=== PATIENT | female | born 1965 | race Caucasian/White ===

== ENCOUNTER 2017-01-25 22:58 | Emergency (ER) | payer OTHER ==
[2017-01-25] MEDS ORDERED: NORMAL SALINE 10 ML SYRINGE FLUSH IVP PRN (23:23)
[2017-01-25] MEDS ORDERED: Sodium Chloride 0.9% 2,000 ML PRIMARY IV ONE (23:23)
[2017-01-25] MEDS ORDERED: MORPHINE SULFATE 4 MG/1 ML IVP ONE (23:23)
[2017-01-25 23:25] VITALS: RESP 18; TEMP 96.1
--- NOTE | 2017-01-25 23:31 | PDOC ---
Abdomen/Flank HPI - General Chief Complaint: Abdomen Pain Stated Complaint: ABDOMINAL PAIN THAT RADIATES TO BACK Date Seen by Provider: 01/25/17 Time Seen by Provider: 23:27 - History of Present Illness Initial Comments: Patient is a very nice 51-year-old female who tells me that she has been having a pain in her left side of her abdomen for about 3 months and that it is worse tonight than normal. She states that she drinks alcohol heavily to try to get this pain to go away and that it's not going away at all tonight despite the fact that she's been drinking a lot. She states that she doesn'tpains ever gone away completely over last 3 months. She has not had any imaging of her abdomen to this point she's not sure that she's had any labs. She is difficult to get a history from because of her intoxication. She denies any nausea or vomiting denies constipation or diarrhea currently. She does not have fever chills according to her. She's had no hematochezia or hematemesis. She's never had pancreatitis in the past. She has had diverticulitis which is in the left low abdomen in the past and she needed to be treated with antibiotics for that. - Patient Home Medications Home Medications: Home Medications Cyclobenzaprine HCl 1 tab PO 1-2 x daily PRN #60 tab 09/06/16 Hydrocodone/Acetaminophen [Hydrocodon-Acetaminophen 5-325] 1 - 2 unit PO Q4-6H PRN #120 tab 09/06/16 Trazodone HCl 1 tab PO QHS #90 tab 09/06/16 Amlodipine Besylate 1 unit PO QD #90 tab 11/18/16 Benazepril HCl 1 unit PO QD #90 tab 11/18/16 Chlorthalidone 1 unit PO QD #90 tab 11/18/16 Hydrocodone/Acetaminophen [Hydrocodon-Acetaminophen 5-325] 1 - 2 tab PO Q4- 6HRSPRN PRN #120 tab 11/18/16 Ropinirole HCl 1 unit PO BID #180 tab 11/18/16 Trazodone HCl 1 tab PO QHS #90 tab 11/18/16 - Patient Allergies Allergies/Adverse Reactions: Allergies Allergy/AdvReac Type Severity Reaction Status Date / Time aripiprazole [From Abilify] Allergy Severe Rash, Hives Verified 01/25/17 23:18 Past Medical History - heen HEENT History: Denies History Cardiovascular History: Hypertension Respiratory History: Denies History Gastrointestinal History: GERD Genitourinary History: Denies History Endocrine History: Denies History Musculoskeletal History: Back Pain, Joint Pain Neurological History: Traumatic Brain Injury Blood Disorders: Denies History Psychiatric History: Depression, Anxiety Disorders, Substance Abuse, Other ( please comment) Additional Psychiatric History: SUICIDE ATTEMPT APPROX. 4 YEARS History of Sexually Transmitted Diseases: No Female Reproductive History: Denies History Obstetrical History: Denies History Cancer History: Denies History In Past Year Been Physically Harmed or Verbally Threatened: No History of MDRO: No History of Other Communicable Diseases: No Tobacco Use: Never Smoker Alcohol Use: Occasionally Type of alcohol normally used: Beer, Hard Liquor Substance Use Type: None Previous Surgical History: Yes Type / Date of Surgery: BRAIN SURGERY. BILATERAL ZEKE. RIGHT KNEE Anesthesia Reactions: No Malignant Hyperthermia: No Significant Family History: No pertinent family hx Past Medical History Reviewed: Reviewed - No Changes ROS - Limitations ROS Limitations: No Limitations Constitution: DENIES: Chills, Fever Cardiovascular: REPORTS: Denies Cardiac Symptoms Respiratory: REPORTS: Denies Resp Symptoms Neurological: REPORTS: Denies Neuro Symptoms Gastrointestinal: REPORTS: Abdominal Pain Abdominal/Flank Pain PE - General Appearance General Appearance: POSITIVE: Alert, Cooperative, Other (Clearly intoxicated) - HEENT HEENT: POSITIVE: Head Inspection Nml, Eyes Inspection Nml - Neck Neck: POSITIVE: Normal Inspection - Respiratory Respiratory: POSITIVE: No Respiratory Distress, Breath Sounds Normal, Chest Non- Tender - Cardiovascular Cardiovascular: POSITIVE: Regular Rate and Rhythm, Heart Sounds Normal, Equal Pulses - Abdomen Additional Abdominal Details: She does have some tenderness in the left upper abdomen with a bit of guarding associated there as well. Midabdomen right upper quadrant and remainder the abdomen are benign tonight. Bowel tones are normal. Abdomen Progress - Results Reviewed by me Lab Results Reviewed: Yes Lab Results:: Laboratory Results 01/25/17 01/25/17 Range/Units 22:45 23:50 WBC 6.92 (4.8-10.8) 10^3/uL RBC 4.31 (4.20-5.40) 10^6/uL Hgb 13.4 (12.0-16.0) g/dL Hct 39.7 (37.0-47.0) % MCV 92.1 (81-99) FL MCH 31.1 H (27-31) PG MCHC 33.8 (33-37) g/dL RDW Std Deviation 43.4 (39-50) fL RDW Coeff of Hima 13.1 (11.5-14.5) % Plt Count 356 H (140-350) 10*3/uL MPV 10.0 (7.4-12.2) FL Immature Gran % (Auto) 0.3 (0-5) % Neut % (Auto) 38.2 L (50-80) % Lymph % (Auto) 50.0 (10-50) % [place] % (Auto) 7.9 (5-15) % Eos % (Auto) 2.3 (0-8) % Baso % (Auto) 1.3 H (0-1) % Immature Gran # (Auto) 0.02 10*3/UL Neut # (Auto) 2.64 10*3/UL Lymph # (Auto) 3.46 10*3/uL [place] # (Auto) 0.55 (0.3-0.8) 10*3/UL Eos # (Auto) 0.16 10*3/UL Baso # (Auto) 0.09 10*3/UL WBC Morphology Comment Normal morphology (NORM) Plt Morphology Comment Normal morphology (NORM) RBC Morph Comment Normal morphology (NORM) Sodium 142 (135-145) meq/L Potassium 3.2 L (3.8-5.2) meq/L Chloride 101 (98-112) meq/L Carbon Dioxide 26 (23-33) meq/L Anion Gap 15 (5-20) BUN 11 (7-22) mg/dL Creatinine 0.7 (0.50-1.20) mg/dL Estimated GFR > 60 (>60 ml/min/1.73m(2)) BUN/Creatinine Ratio 15.71 (6-20) Glucose 114 H (78-110) mg/dL Calculated Osmolality 293.0 H (267-292) mOsm/kg Calcium 9.4 (8.7-10.7) mg/dL Total Bilirubin 0.4 (0.3-1.2) mg/dL AST 38 (8-39) IU/L ALT 30 (9-52) IU/L Alkaline Phosphatase 57 (38-126) IU/L Total Protein 8.0 (6.1-8.0) g/dL Albumin 4.6 (3.5-4.8) g/dL Globulin 3.4 (2.50-4.10) g/dL Albumin/Globulin Ratio 1.30 (1.3-2.0) mg/g Lipase 92 (23-300) IU/L Ur Collection Type Clean catch urine Urine Color Yellow Urine Clarity Clear (CLEAR) Urine pH 6.5 (5.0-8.5) Ur Specific [place] 1.005 (1.005-1.030) Urine Protein Negative (NEG) mg/dl Urine Glucose (UA) Negative (NEG) mg/dL Urine Ketones Negative (NEG) Urine Occult Blood Negative (NEG) Urine Nitrate Negative (NEG) Urine Bilirubin Negative (NEG) Urine Urobilinogen 0.2 (0.2) EU/dL Ur Leukocyte Esterase Negative (NEG) Ur Culture Indicated? Culture not set Serum Alcohol 272 H (0-10) mg/dL - Patient's Progress MDM / ED Course: This patient has a markedly elevated blood alcohol level at 272. Otherwise lipase is okay white blood cell count is normal no other significant concerning indicators that she needs further imaging or other more aggressive workup. She apparently had this pain now for around 3 months. She tells me that she has discussed having a colonoscopy with the provider. She states that she will try to stop drinking. Ultimately I don't feel that there is any other significant workup to do tonight and we'll go ahead and discharge her home and I've encouraged her to follow-up with her primary care provider in the next 1-2 days. Patient Care Time - Estimated PCT Patient Care Time (In Minutes): 35 Vital Signs - Recent Vital Signs Vital Signs: Vital Signs (Last 8 hours) Temp Pulse Resp BP Pulse Ox 01/25/17 22:59 96.1 F L 91 18 101/74 94 - VS Reviewed Vital Signs Reviewed: Yes Discharge Clinical Impression: Abdominal pain Discharge Disposition: Discharged to Home Condition: Good Patient Instructions Given at Discharge: Acute Abdominal Pain (ED) Additional Instructions: Follow-up with your primary care provider to evaluate your ongoing abdominal pain Rest is much can over the next couple days to see if this will help your pain improve Consider colonoscopy versus imaging of your abdomen by CT if your symptoms do not improve Please try to stop drinking. If when you do stop drinking at withdrawal symptoms please be hospitalized to help stop drinking Follow Up With: NADJA JIMENEZ [Primary Care Provider] -
[2017-01-25 23:32] LABS: BASOPHILS # (AUTO) 0.09 10*3/UL; BASOPHILS % (AUTO) 1.3 % (0-1); EOSINOPHILS # (AUTO) 0.16 10*3/UL; EOSINOPHILS % (AUTO) 2.3 % (0-8); HEMATOCRIT 39.7 % (37.0-47.0); HEMOGLOBIN 13.4 g/dL (12.0-16.0); LYMPHOCYTES # (AUTO) 3.46 10*3/uL; MEAN CORPUSCULAR HEMOGLOBIN 31.1 PG (27-31); MEAN CORPUSCULAR HGB CONC 33.8 g/dL (33-37); MEAN CORPUSCULAR VOLUME 92.1 FL (81-99); MONOCYTES # (AUTO) 0.55 10*3/UL (0.3-0.8); MONOCYTES % (AUTO) 7.9 % (5-15); NEUTROPHILS # (AUTO) 2.64 10*3/UL; NEUTROPHILS % (AUTO) 38.2 % (50-80); RED BLOOD COUNT 4.31 10^6/uL (4.20-5.40)
[2017-01-25 23:33] LABS: PLATELET MORPHOLOGY COMMENT NORMAL MORPHOLOGY (NORM); RBC MORPHOLOGY COMMENT NORMAL MORPHOLOGY (NORM); WBC MORPHOLOGY COMMENT NORMAL MORPHOLOGY (NORM)
[2017-01-25 23:43] LABS: BLOOD UREA NITROGEN 11 mg/dL (7-22); BUN/CREATININE RATIO 15.71 (6-20); CALCIUM 9.4 mg/dL (8.7-10.7); EST GLOMERULAR FILTRATION > 60 (>60 ml/min/1.73m(2)); LIPASE 92 IU/L (23-300); SERUM ALBUMIN 4.6 g/dL (3.5-4.8)
[2017-01-25 23:59] LABS: BILIRUBIN,URINE NEGATIVE (NEG); CLARITY,URINE CLEAR (CLEAR); COLOR,URINE YELLOW; GLUCOSE, URINE (UA) NEGATIVE (NEG); NITRATE,URINE NEGATIVE (NEG); OCCULT BLOOD,URINE NEGATIVE (NEG); PH,URINE 6.5 (5.0-8.5); PROTEIN,URINE NEGATIVE (NEG); URINE SAMPLE TYPE CLEAN CATCH URINE; UROBILINOGEN,URINE 0.2 EU/dL (0.2)
== END 2017-01-26 01:00 | disposition home or self-care (01) ==
LOC: ER 22:58
DX: R10.12 Left upper quadrant pain (principal); F10.129 Alcohol abuse with intoxication, unspecified
CPT/HCPCS: 80053; 80320; 81003; 83690; 85025; 96361; 96374; 99283; J2270; J7030